=== PATIENT | female | born 1960 | race Caucasian/White ===

== ENCOUNTER → 2020-12-19 | Outpatient (CLI) | payer BC | LOC: MAMO 07:28 | DX: Z12.31 Encounter for screening mammogram for malignant neoplasm of breast (principal) | CPT/HCPCS: 77063; 77067 ==

== ENCOUNTER → 2021-04-03 | Outpatient (CLI) | payer BC | LOC: RAD 10:43 | DX: R06.02 Shortness of breath (principal); M25.512 Pain in left shoulder | CPT/HCPCS: 71046; 93005 ==